=== PATIENT | female | born 1940 | race Caucasian/White ===

== ENCOUNTER 2020-04-16 17:47 | Emergency (ER) | payer OTHER, MEDICAID, SELFPAY ==
[~2020-04-16] VITALS: Ht 167.6 cm; Wt 79.4 kg
[2020-04-16 17:47] VITALS: BP_SYST 138
--- NOTE | 2020-04-16 18:02 | NUR ---
PLACED IN BED 4
--- NOTE | 2020-04-16 18:05 | NUR ---
PT CAN FROM [facility] FOR MEDICAL CLEARANCE FOR TRANSFER TO [facility]. PT HAS BEEN INCREASINGLY AGRESSIVE, YELLING. HX OF DEMENTIA. AAOX1, V/S STABLE
--- NOTE | 2020-04-16 18:10 | NUR ---
ER DR. AVINA AT THE BEDSIDE
--- NOTE | 2020-04-16 18:15 | NUR ---
LAB AT THE BEDSIDE FOR BLOOD DRAW. PT REFUSING
--- NOTE | 2020-04-16 18:30 | NUR ---
COVID SWAB DONE AND SENT TO LAB
--- NOTE | 2020-04-16 19:12 | NUR ---
REPORT GIVEN TO NIK CARMONA FOR CONTINUING CARE
[2020-04-16 20:08] LABS: BILIRUBIN,URINE NEGATIVE (NEGATIVE); BLOOD, URINE NEGATIVE (NEGATIVE); CLARITY/URINE CLEAR (CLEAR); COLOR,URINE YELLOW (YELLOW); GLUCOSE,URINE NEGATIVE (NEGATIVE); KETONES,URINE NEGATIVE (NEGATIVE); LEUKOCYTE ESTERASE ,URINE NEGATIVE (NEGATIVE); NITRITE, URINE NEGATIVE (NEGATIVE); PROTEIN URINE NEGATIVE (NEGATIVE); UROBILINOGEN,URINE 0.2 (0.2-1.0)
[2020-04-16] MEDS ORDERED: HALOPERIDOL LACTATE 5 MG/ML VIAL ONE (20:44)
--- NOTE | 2020-04-16 21:09 | NUR ---
Gave report to Gissel Chua / Judy
[2020-04-16 21:35] VITALS: BP_SYST 138
--- NOTE | 2020-04-16 21:35 | NUR ---
Patient to be transferred to [facility]. Is being transferred due to higher level of care. Receiving facility has accepting physician and available space. ER physician has signed transfer form. Patient or responsible libertarian has agreed to transfer and signed form. Patient belongings inventoried and will be sent with patient. Copy of nursing notes, lab reports, EKG, Physicians Orders and X-rays to be sent with patient. Report called to Judy at receiving facility. Receiving physician is Dr. Flores. [facility] ambulance service has been called for transfer.
== END 2020-04-16 21:35 ==
LOC: SED 17:47
DX: F03.90 Unspecified dementia, unspecified severity, without behavioral disturbance, psychotic disturbance, mood disturbance, and anxiety (principal); R45.6 Violent behavior; Z20.828 Contact with and (suspected) exposure to other viral communicable diseases
CPT/HCPCS: 36415; 81003; 87426; 99285; J1630